=== PATIENT | female | born 1960 | race Caucasian/White ===

== ENCOUNTER 2023-12-13 10:17 | Observation (INO) | payer OTHER ==
[2023-12-13] MEDS ORDERED: fentaNYL 50 mcg/mL 1 mL Vial ONE (11:06)
[2023-12-13] MEDS ORDERED: Midazolam HCl 2 mg/2 ml Vial ONE (11:06)
[2023-12-13] MEDS ORDERED: Bupivacaine PF 0.5% 30 ML VIAL ONE (11:06)
[2023-12-13 11:40] LABS: Hematocrit 35.8 % (36.0-47.0); Hemoglobin 12.3 g/dL (12.0-16.0); Mean Corpuscular HGB CONC 34.4 g/dL (32.0-36.0); Mean Corpuscular Hemoglobin 31.1 pg (27.0-31.0); Mean Corpuscular Volume 90.6 fl (78.0-98.0); Mean Platelet Volume 10.1 fL (7.4-10.4); Platelet Count 249 10x3/uL (130-400); RBC Distribution Width 12.6 % (11.5-14.5); Red Blood Cell (RBC) Count 3.95 mill/uL (4.20-5.40); White Blood Cell (WBC) Count 5.7 10x3/uL (4.8-10.8)
[2023-12-13 11:54] LABS: PTT 32.2 sec (22.9-36.1); Prothrombin Time 13.6 sec (12.0-14.7)
[2023-12-13 11:58] LABS: Anion Gap 10 mmol/L (10-20); BUN (Urea Nitrogen) 18 mg/dL (9.8-20.1); Calc. Creatinine Clearance 65 mL/min (70-130); Calcium 9.8 mg/dL (7.8-10.44); Carbon Dioxide 29 mmol/L (23-31); Chloride 105 mmol/L (98-107); Estimated GFR 80; Glucose 99 mg/dL (80-115); Potassium 4.5 mmol/L (3.5-5.1); Sodium 139 mmol/L (136-145)
[2023-12-13] MEDS ORDERED: Bupivacaine HCl 0.5%/Epinephrine 1:200,000/PF 30 ml Vial ONE (12:00)
[2023-12-13] MEDS ORDERED: Tranexamic Acid 1,000 MG/10 ML VIAL ONE (12:12)
[2023-12-13] MEDS ORDERED: Sodium Chloride 0.9% 100 ML ONE ×2 (12:12→12:25)
[2023-12-13] MEDS ORDERED: Ondansetron PF 4 MG/2 ML Vial IVP PRN ×2 (12:15→20:53)
[2023-12-13] MEDS ORDERED: Promethazine HCl 25 MG/ML VIAL IM PRN (12:15)
[2023-12-13] MEDS ORDERED: traMADol HCl 50 MG TAB PO PRN ×2 (12:15)
[2023-12-13] MEDS ORDERED: Ropivacaine 0.2% 550 ML 550 ML NERVE BLCK SCH (12:15)
[2023-12-13] MEDS ORDERED: fentaNYL 50 mcg/mL 1 mL Vial SLOW IVP PRN (12:16)
[2023-12-13] MEDS ORDERED: CEFAZOLIN 2 GM VIAL ONE (12:25)
[2023-12-13] MEDS ORDERED: PROPOFOL 20 ML ONE (12:38)
[2023-12-13] MEDS ORDERED: Ondansetron PF 4 MG/2 ML Vial ONE (12:40)
[2023-12-13] MEDS ORDERED: Dexamethasone 4 mg/ml Vial ONE (12:40)
[2023-12-13] MEDS ORDERED: Glycopyrrolate 0.2 MG/ML 5 ML SYRINGE ONE (12:50)
[2023-12-13] MEDS ORDERED: ePHEDrine Sulfate 50 MG/10 ML VIAL ONE (13:00)
[2023-12-13] MEDS ORDERED: Mineral Oil Sterile 10 ML VIAL ONE (13:10)
[2023-12-13] MEDS ORDERED: Vancomycin HCl 500 MG VIAL ONE (13:21)
[2023-12-13] MEDS ORDERED: HYDROmorphone 0.5 MG/0.5 ML SYRINGE ONE (14:40)
[2023-12-13] MEDS ORDERED: Vancomycin 1 GM VIAL ONE (14:45)
[2023-12-13] MEDS ORDERED: Ketorolac Tromethamine 30 MG (1 mL) VIAL ONE (18:15)
[2023-12-13] MEDS: Ketorolac Tromethamine 30 MG (1 mL) VIAL IVP SCH (18:17)
[2023-12-13] MEDS ORDERED: Morphine 4 MG/ML VIAL SLOW IVP PRN (20:52)
[2023-12-13] MEDS ORDERED: Acetaminophen 325 MG TAB PO PRN (20:52)
[2023-12-13] MEDS: CEFAZOLIN 2 GM in Sodium Chloride 0.9% 100 ML IVPB SCH (21:56)
[2023-12-13] MEDS: Gabapentin 300 MG CAP PO SCH (21:58)
[2023-12-13] MEDS: ALPRAZolam 0.5 MG TAB PO SCH (21:59)
[2023-12-13] MEDS: HYDROcodone/Acetaminophen 10/325 mg Tablet PO PRN (22:06)
[2023-12-13 23:39] VITALS: BMI 22.5
[2023-12-14] MEDS: tiZANidine HCl 4 MG TAB PO PRN (00:01)
[2023-12-14] MEDS: Zolpidem Tartrate 5 MG TAB PO PRN (00:04)
[2023-12-14] MEDS: HYDROcodone/Acetaminophen 10/325 mg Tablet PO PRN (05:48)
[2023-12-14] MEDS: Lisinopril 20 MG TAB PO SCH (09:30)
[2023-12-14] MEDS: Multivit, Therapeutic 1 TAB PO SCH (09:30)
[2023-12-14 12:42] VITALS: BP 126/69; TEMP 97.6
[2023-12-14] MEDS: Aspirin 81 mg Enteric Coated Tablet PO SCH (12:43)
[2023-12-14] MEDS ORDERED: Aspirin 81 mg Enteric Coated Tablet PO SCH (21:00)
[2023-12-15] MEDS ORDERED: CeleCOXIB 100 MG CAP PO PRN (21:00)
== END 2023-12-14 14:05 | disposition home or self-care (01) ==
LOC: SDC 10:17 → SURG A 20:23
PROVIDERS: ADMIT Orthopaedic Surgery; ATTEND Orthopaedic Surgery
PROC: 0SRF0JZ Replacement of Right Ankle Joint with Synthetic Substitute, Open Approach (ICD-10-PCS; principal; 2023-12-13)
PROC: 0SW Lower Joints, Revision (ICD-10-PCS; 2023-12-13)
PROC: 0MQQ0ZZ Repair Right Ankle Bursa and Ligament, Open Approach (ICD-10-PCS; 2023-12-13)
DX: M13.871 Other specified arthritis, right ankle and foot (principal); I10 Essential (primary) hypertension; Z96.653 Presence of artificial knee joint, bilateral; Z79.899 Other long term (current) drug therapy; Z88.2 Allergy status to sulfonamides
CPT/HCPCS: 80048; 85027; 85610; 85730; 93005; 93010; A4306; A4314; C1713; C1776; J0665; J1100; J1170; J1885; J2250; J2405; J2704; J2795; J3010; J3370; J3490